=== PATIENT | female | born 1975 | race African-American/Black ===

== ENCOUNTER 2020-01-25 16:56 | Emergency (ER) | payer MEDICAID ==
[~2020-01-25] VITALS: Ht 160 cm; Wt 72.6 kg
[2020-01-25 17:07] VITALS: BP 136/79
== END 2020-01-25 17:54 | disposition home or self-care (01) ==
LOC: ER 17:00
DX: H01.006 Unspecified blepharitis left eye, unspecified eyelid (principal)

== ENCOUNTER 2023-07-14 21:07 | Emergency (ER) | payer MEDICAID ==
[2023-07-14] MEDS ORDERED: AMOX500C2 PO (22:56)
[2023-07-14] MEDS ORDERED: PROM118S5 PO (22:56)
== END 2023-07-14 23:58 | disposition home or self-care (01) ==
LOC: ER 21:11
DX: J02.9 Acute pharyngitis, unspecified (principal); H66.91 Otitis media, unspecified, right ear